=== PATIENT | female | born 1975 | race African-American/Black ===

== ENCOUNTER 2022-02-04 09:30 | Emergency (ER) | payer OTHER ==
[~2022-02-04] VITALS: Ht 165.1 cm; Wt 84.1 kg
[~2022-02-04 09:30] MED LIST: ASPI-556 PO; LISI5TAB PO; METO-327 PO; SIMV-260 PO; TRIA1TAB91 PO; VICOT PO
[2022-02-04] MEDS ORDERED: FAMO20 PO (09:38)
[2022-02-04 11:27] LABS: APPEARANCE,URINE CLEAR (CLEAR); BILIRUBIN,URINE NEGATIVE (NEGATIVE); GLUCOSE, URINE (UA) NEGATIVE (NEGATIVE); KETONES,URINE NEGATIVE (NEGATIVE); LEUKOCYTE ESTERASE ,URINE LARGE (NEGATIVE); NITRATE,URINE NEGATIVE (NEGATIVE); OCCULT BLOOD,URINE NEGATIVE (NEGATIVE); PROTEIN,URINE NEGATIVE (NEGATIVE); SPECIFIC GRAVITIY, URINE 1.023 (1.003-1.030); UROBILINOGEN,URINE <=1.0 mg/dL (<=1.0)
[2022-02-04] MEDS ORDERED: KETOROLAC TROMETHAMINE 60 MG/2 ML VIAL IM ONE (11:30)
[2022-02-04] MEDS ORDERED: CYCLOBENZAPRINE HCL 10 MG TABLET PO ONE (11:30)
[2022-02-04 11:40] LABS: BACTERIA,URINE Moderate /HPF (None Seen); RBC,URINE None Seen /HPF (0-2); SQUAMOUS EPITHELIAL CELL,UR Moderate /LPF (None Seen)
[2022-02-04] MEDS ORDERED: NITR-75 PO (11:47)
[2022-02-04] MEDS ORDERED: NAPR-1024 PO (11:48)
[2022-02-04] MEDS ORDERED: CYCL-448 PO (11:52)
[2022-02-04 12:02] VITALS: BP 136/77
== END 2022-02-04 12:20 | disposition home or self-care (01) ==
LOC: EMS 09:30
DX: N39.0 Urinary tract infection, site not specified (principal); S39.012A Strain of muscle, fascia and tendon of lower back, initial encounter; I10 Essential (primary) hypertension; Z98.890 Other specified postprocedural states; Z85.9 Personal history of malignant neoplasm, unspecified; Z86.79 Personal history of other diseases of the circulatory system; X58.XXXA Exposure to other specified factors, initial encounter; Y93.89 Activity, other specified; Y92.89 Other specified places as the place of occurrence of the external cause; Y99.8 Other external cause status
CPT/HCPCS: 99283; 81001; 87086; 96372; J1885

== ENCOUNTER 2022-10-21 16:46 | Emergency (ER) | payer OTHER ==
[~2022-10-21] VITALS: Ht 149.9 cm; Wt 99.1 kg
[~2022-10-21 16:46] MED LIST changes: +CYCL-448 PO; +FAMO20 PO; +NAPR-1024 PO; +NITR-75 PO
[2022-10-21] MEDS ORDERED: SIMV10TA97 PO (16:57)
[2022-10-21] MEDS ORDERED: OMEP20CA12 PO (16:57)
[2022-10-21] MEDS ORDERED: TRIA1CAP87 PO (16:57)
[2022-10-21] MEDS ORDERED: ASPI-1444 PO (16:57)
[2022-10-21] MEDS ORDERED: METOCLOPRAMIDE HCL 5 MG/ML 2 ML VIAL IVP ONE (19:00)
[2022-10-21] MEDS ORDERED: SODIUM CHLORIDE 0.9% 1,000 ML IV ONE (19:00)
[2022-10-21 19:13] LABS: BASOPHILS % (AUTO) 0.3 % (0.0-2.0); EOSINOPHILS % (AUTO) 0 % (1.0-6.0); HEMATOCRIT 39.7 % (36-46); HEMOGLOBIN 13.1 g/dL (12.0-16.0); LYMPHOCYTES # (AUTO) 1.5 K/uL (1.0-4.8); LYMPHOCYTES % (AUTO) 20.7 % (22.0-44.0); MEAN CORPUSCULAR HEMOGLOBIN 29.3 pg (26.0-34.0); MEAN CORPUSCULAR VOLUME 89 fL (80-100); MONOCYTES # (AUTO) 0.4 K/uL (0.1-1.0); MONOCYTES % (AUTO) 5.1 % (2.0-9.0); NEUTROPHILS # (AUTO) 5.4 K/uL (1.8-7.7); NEUTROPHILS % (AUTO) 73.9 % (40.0-70.0); PLATELET COUNT (AUTO) 236 K/uL (150-450); RED BLOOD CELL COUNT(AUTO) 4.48 MIL/uL (4.00-5.20)
[2022-10-21 19:24] LABS: ANION GAP 7 mmol/L (8-16); CALCIUM, TOTAL 9.3 mg/dL (8.8-10.5); CARBON DIOXIDE 29 mmol/L (22-29); CHLORIDE 102 mmol/L (98-107); CREATININE 0.85 mg/dL (0.60-1.30); GLOMERULAR FILTR. RATE CALC > 60 mL/min (>60); GLUCOSE,RANDOM 117 mg/dL (70-110); POTASSIUM 3.4 mmol/L (3.5-5.1); SODIUM SERUM 138 mmol/L (136-145); UREA NITROGEN, BLOOD 14 mg/dL (7-18)
[2022-10-21 19:35] LABS: ALANINE AMINOTRANSFERASE 52 U/L (12-78); ALBUMIN 3.8 g/dL (3.4-5.0); ALKALINE PHOSPHATASE 110 U/L (46-116); ASPARTATE AMINOTRANSFERASE 32 U/L (15-37); BILIRUBIN,TOTAL 0.6 mg/dL (0.1-1.0); HCG,QUANTITATIVE < 1 mIU/mL (0-6); LIPASE 60 U/L (73-393); TOTAL PROTEIN, SERUM 8.5 g/dL (6.4-8.2)
[2022-10-21 22:50] LABS: APPEARANCE,URINE CLEAR (CLEAR); BILIRUBIN,URINE NEGATIVE (NEGATIVE); GLUCOSE, URINE (UA) NEGATIVE (NEGATIVE); LEUKOCYTE ESTERASE ,URINE NEGATIVE (NEGATIVE); NITRATE,URINE NEGATIVE (NEGATIVE); OCCULT BLOOD,URINE NEGATIVE (NEGATIVE); PH,URINE 5.5 (5.0-8.0); PROTEIN,URINE TRACE mg/dL (NEGATIVE); SPECIFIC GRAVITIY, URINE 1.029 (1.003-1.030)
[2022-10-22 00:30] VITALS: BP 148/82
== END 2022-10-22 00:40 | disposition home or self-care (01) ==
LOC: EMS 16:47
DX: K52.9 Noninfective gastroenteritis and colitis, unspecified (principal); A08.4 Viral intestinal infection, unspecified; I11.9 Hypertensive heart disease without heart failure; Z98.890 Other specified postprocedural states
CPT/HCPCS: 99283; 96374; 96361; 80053; 83690; 84702; 85025; 36415; J2765; J7030

== ENCOUNTER 2023-05-26 09:41 | Emergency (ER) | payer OTHER ==
[~2023-05-26] VITALS: Ht 162.6 cm; Wt 45.0 kg
[~2023-05-26 09:41] MED LIST changes: +ASPI-1444 PO; -ASPI-556 PO; -CYCL-448 PO; -FAMO20 PO; -LISI5TAB PO; -NAPR-1024 PO; -NITR-75 PO; +OMEP20CA12 PO; -SIMV-260 PO; +SIMV10TA97 PO; +TRIA1CAP87 PO; -TRIA1TAB91 PO; -VICOT PO
[2023-05-26 09:48] VITALS: TEMP 98.8
[2023-05-26] MEDS ORDERED: KETOROLAC TROMETHAMINE 60 MG/2 ML VIAL IM ONE (11:15)
[2023-05-26] MEDS ORDERED: IBUP-1554 PO (12:00)
[2023-05-26 12:45] VITALS: BP 142/83; PULSE 76; RESP 18
== END 2023-05-26 12:59 | disposition home or self-care (01) ==
LOC: EMS 09:56
DX: S13.4XXA Sprain of ligaments of cervical spine, initial encounter (principal); R59.1 Generalized enlarged lymph nodes; I11.9 Hypertensive heart disease without heart failure; Z85.038 Personal history of other malignant neoplasm of large intestine; Z98.890 Other specified postprocedural states; X58.XXXA Exposure to other specified factors, initial encounter; Y93.89 Activity, other specified; Y92.89 Other specified places as the place of occurrence of the external cause; Y99.8 Other external cause status
CPT/HCPCS: 99283; 72040; 96372; J1885

== ENCOUNTER 2023-11-15 07:57 | Day surgery (SDC) | payer OTHER ==
[~2023-11-15] VITALS: Ht 162.6 cm; Wt 99.1 kg
[~2023-11-15 07:57] MED LIST changes: +AMIO200T68 PO; +ATOR40TA28 PO; +FAMO20 PO; +FURO40 PO; +IBUP-1493 PO; +IBUP-1554 PO; +LEVE500T20 PO; +NITR0.4T52 SL; +POTA-92 PO; +SACU1TAB7 PO; +SODIUM CHLORIDE 0.9% 1,000 ML ONE
[2023-11-15] MEDS: SODIUM CHLORIDE 0.9% 1,000 ML IV ONE (10:31)
[2023-11-15] MEDS ORDERED: LIDOCAINE/PF 2% 5 ML VIAL IM ONE (12:00)
[2023-11-15] MEDS ORDERED: PROPOFOL 1% 20 ML VIAL IVP ONE (12:00)
[2023-11-15] MEDS ORDERED: OXYGEN THERAPY IH SCH (20:00)
== END 2023-11-15 12:30 | disposition home or self-care (01) ==
LOC: SURGERY 07:57
PROVIDERS: ATTEND Specialist
DX: Z12.11 Encounter for screening for malignant neoplasm of colon (principal); I10 Essential (primary) hypertension; I25.10 Atherosclerotic heart disease of native coronary artery without angina pectoris; E11.9 Type 2 diabetes mellitus without complications; I25.2 Old myocardial infarction; E78.5 Hyperlipidemia, unspecified; Z85.00 Personal history of malignant neoplasm of unspecified digestive organ; C18.9 Malignant neoplasm of colon, unspecified; Z86.010 Personal history of colon polyps
CPT/HCPCS: 45378; 84703; 36415; J2704; J3490; J7030

== ENCOUNTER 2023-11-28 05:04 | Emergency (ER) | payer OTHER ==
[~2023-11-28] VITALS: Ht 162.6 cm; Wt 105.0 kg
[~2023-11-28 05:04] MED LIST changes: -SODIUM CHLORIDE 0.9% 1,000 ML ONE
[2023-11-28 06:04] LABS: BASOPHILS % (AUTO) 1.3 % (0.0-2.0); EOSINOPHILS % (AUTO) 0.9 % (1.0-6.0); HEMATOCRIT 36.2 % (36-46); HEMOGLOBIN 12.2 g/dL (12.0-16.0); LYMPHOCYTES # (AUTO) 2.7 K/uL (1.0-4.8); LYMPHOCYTES % (AUTO) 43.2 % (22.0-44.0); MEAN CORPUSCULAR HEMOGLOBIN 30.3 pg (26.0-34.0); MEAN CORPUSCULAR HGB CONC 33.7 G/dL (31.0-37.0); MEAN CORPUSCULAR VOLUME 90 fL (80-100); MONOCYTES # (AUTO) 0.5 K/uL (0.1-1.0); MONOCYTES % (AUTO) 7.9 % (2.0-9.0); NEUTROPHILS # (AUTO) 2.9 K/uL (1.8-7.7); NEUTROPHILS % (AUTO) 46.7 % (40.0-70.0); PLATELET COUNT (AUTO) 273 K/uL (150-450); RED BLOOD CELL COUNT(AUTO) 4.02 MIL/uL (4.00-5.20); RED CELL DISTRIBUTION WIDTH 15.5 % (11.5-14.5); WHITE BLOOD COUNT (AUTO) 6.2 K/uL (4.5-11.0)
[2023-11-28 06:07] LABS: APPEARANCE,URINE CLEAR (CLEAR); BILIRUBIN,URINE NEGATIVE (NEGATIVE); COLOR,URINE COLORLESS (YELLOW); GLUCOSE, URINE (UA) >=1000 mg/dL (NEGATIVE); KETONES,URINE NEGATIVE (NEGATIVE); LEUKOCYTE ESTERASE ,URINE NEGATIVE (NEGATIVE); NITRATE,URINE NEGATIVE (NEGATIVE); OCCULT BLOOD,URINE NEGATIVE (NEGATIVE); PROTEIN,URINE NEGATIVE (NEGATIVE); UROBILINOGEN,URINE <=1.0 mg/dL (<=1.0)
[2023-11-28 06:10] LABS: BACTERIA,URINE None Seen /HPF (None Seen); RBC,URINE None Seen /HPF (0-2); SQUAMOUS EPITHELIAL CELL,UR Rare /LPF (None Seen); WBC,URINE None Seen /HPF (0-5)
[2023-11-28] MEDS: ACETAMINOPHEN 500 MG TABLET PO ONE (06:13)
[2023-11-28 06:14] LABS: ANION GAP 6 mmol/L (8-16); CALCIUM, TOTAL 8.5 mg/dL (8.8-10.5); CARBON DIOXIDE 29 mmol/L (22-29); CHLORIDE 104 mmol/L (98-107); CREATININE 1.02 mg/dL (0.60-1.30); GLOMERULAR FILTR. RATE CALC > 60 mL/min (>60); GLUCOSE,RANDOM 105 mg/dL (70-110); POTASSIUM 3.9 mmol/L (3.5-5.1); SODIUM SERUM 139 mmol/L (136-145); UREA NITROGEN, BLOOD 17 mg/dL (7-18)
[2023-11-28] MEDS: KETOROLAC TROMETHAMINE 30 MG/ML VIAL IVP ONE (06:16)
[2023-11-28 06:25] LABS: TROPONIN I-HIGH SENSITIVITY 9 ng/L (<51)
[2023-11-28 06:28] LABS: ALANINE AMINOTRANSFERASE 44 U/L (12-78); ALBUMIN 3.3 g/dL (3.4-5.0); ALKALINE PHOSPHATASE 122 U/L (46-116); ASPARTATE AMINOTRANSFERASE 21 U/L (15-37); BILIRUBIN,TOTAL 0.5 mg/dL (0.1-1.0); HCG,QUANTITATIVE < 1 mIU/mL (0-6); LIPASE 18 U/L (16-77); TOTAL PROTEIN, SERUM 7.6 g/dL (6.4-8.2)
[2023-11-28 06:34] VITALS: TEMP 98
[2023-11-28] MEDS ORDERED: IOHEXOL 350 MG/ML 100 ML VIAL ONE (07:01)
[2023-11-28] MEDS ORDERED: SODIUM CHLORIDE 0.9% 100 ML ONE (07:01)
[2023-11-28 08:32] VITALS: BP 168/112; PULSE 59; RESP 18
[2023-11-28] MEDS ORDERED: ACET-3385 PO (08:35)
== END 2023-11-28 08:47 | disposition home or self-care (01) ==
LOC: EMS 05:05
DX: R10.32 Left lower quadrant pain (principal); I10 Essential (primary) hypertension; C80.1 Malignant (primary) neoplasm, unspecified; Z87.442 Personal history of urinary calculi
CPT/HCPCS: 99285; 74177; 96374; 80053; 81001; 83690; 84484; 84702; 85025; 36415; 93005; J1885; Q9967; J7050

== ENCOUNTER 2024-04-14 14:25 | Emergency (ER) | payer OTHER ==
[~2024-04-14] VITALS: Ht 162.6 cm; Wt 95.5 kg
[~2024-04-14 14:25] MED LIST changes: +ACET-3385 PO; -FURO40 PO; +FURO40TA6 PO; +LEVE-71 PO; -LEVE500T20 PO
[2024-04-14] MEDS ORDERED: SACU1TAB4 PO (14:49)
[2024-04-14] MEDS ORDERED: DAPA5TAB PO (14:49)
[2024-04-14] MEDS ORDERED: CARV12.530 PO (14:49)
[2024-04-14] MEDS ORDERED: OMEP20 PO (14:49)
[2024-04-14 15:57] VITALS: TEMP 98
[2024-04-14 16:54] LABS: BASOPHILS % (AUTO) 0.7 % (0.0-2.0); EOSINOPHILS % (AUTO) 0.5 % (1.0-6.0); HEMATOCRIT 40.6 % (36-46); HEMOGLOBIN 13.1 g/dL (12.0-16.0); LYMPHOCYTES # (AUTO) 2.1 K/uL (1.0-4.8); LYMPHOCYTES % (AUTO) 40.6 % (22.0-44.0); MEAN CORPUSCULAR HEMOGLOBIN 29.8 pg (26.0-34.0); MEAN CORPUSCULAR HGB CONC 32.3 G/dL (31.0-37.0); MEAN CORPUSCULAR VOLUME 92 fL (80-100); MONOCYTES # (AUTO) 0.4 K/uL (0.1-1.0); MONOCYTES % (AUTO) 7.6 % (2.0-9.0); NEUTROPHILS # (AUTO) 2.6 K/uL (1.8-7.7); NEUTROPHILS % (AUTO) 50.6 % (40.0-70.0); PLATELET COUNT (AUTO) 237 K/uL (150-450); RED BLOOD CELL COUNT(AUTO) 4.41 MIL/uL (4.00-5.20); RED CELL DISTRIBUTION WIDTH 15.5 % (11.5-14.5); WHITE BLOOD COUNT (AUTO) 5.2 K/uL (4.5-11.0)
[2024-04-14 17:06] LABS: ANION GAP 9 mmol/L (8-16); CALCIUM, TOTAL 8.9 mg/dL (8.8-10.5); CARBON DIOXIDE 28 mmol/L (22-29); CHLORIDE 104 mmol/L (98-107); GLOMERULAR FILTR. RATE CALC > 60 mL/min (>60); GLUCOSE,RANDOM 82 mg/dL (70-110); POTASSIUM 4.3 mmol/L (3.5-5.1); SODIUM SERUM 141 mmol/L (136-145); UREA NITROGEN, BLOOD 17 mg/dL (7-18)
[2024-04-14] MEDS: AmLODIPine BESYLATE 10 MG TABLET PO ONE (17:54)
[2024-04-14 18:00] VITALS: BP 154/72; PULSE 54; RESP 18; O2SAT 98
== END 2024-04-14 18:35 | disposition home or self-care (01) ==
LOC: EMS 14:25
DX: I10 Essential (primary) hypertension (principal); Z85.038 Personal history of other malignant neoplasm of large intestine; Z79.82 Long term (current) use of aspirin; Z79.899 Other long term (current) drug therapy; Z79.84 Long term (current) use of oral hypoglycemic drugs
CPT/HCPCS: 80048; 85025; 93005; 99284